=== PATIENT | male | born 1955 | race Caucasian/White ===

== ENCOUNTER 2016-05-25 12:05 | Inpatient (IN) | payer BC ==
[~2016-05-25] VITALS: Ht 182.9 cm; Wt 142.5 kg
--- NOTE | ~2016-05-25 | HP ---
PATIENT'S NAME: COLLIN NICHOLS [facility] AGE: 60 Y [address] ROOM: [place] [address] LOCATION: [facility] ADMIT DATE: 05/25/2016 History & Physical DISCHARGE DATE: FAMILY PHYSICIAN: PHYSICIAN, UNKNOWN ATTENDING PHYSICIAN: Karen Alexander DATE OF SERVICE: 05/25/2016 The patient referred from [facility]. REASON FOR REFERRAL: Subarachnoid hemorrhage. PATIENT IDENTIFICATION: Collin Nichols is a 60-year-old right-handed male. PRESENTING COMPLAINT: Headache. HISTORY OF PRESENT ILLNESS: The patient developed a sudden severe headache about 9:00 a.m. this morning. He had some vomiting after the headache and was incontinent of bowel and bladder. When the came into the house and found that the patient was half on the couch and half on the floor with his pants partly pulled down. He was not responding very well. The patient's son came by and they were able to get the patient to stand up and changing to sweat pants. The patient stood up by himself but was unsteady. He went outside and had a cigarette. The patient was then persuaded to go to the hospital and he was taken to [facility]. He complained of headache still. A head CT scan was performed and it showed aneurysm or subarachnoid hemorrhage. The patient was transferred here for further treatment. While here, the patient had a CT angiogram which demonstrated two aneurysm see below. PAST MEDICAL HISTORY: The patient has a history of elevated blood pressure. SOCIAL HISTORY: The patient is . He smokes cigarettes. FAMILY HISTORY: There is no family history relevant to present problems. REVIEW OF SYSTEMS: PATIENT'S NAME: COLLIN NICHOLS [facility] AGE: 60 Y [address] ROOM: [place] [address] LOCATION: [facility] ADMIT DATE: 05/25/2016 History & Physical DISCHARGE DATE: FAMILY PHYSICIAN: PHYSICIAN, UNKNOWN ATTENDING PHYSICIAN: Karen Alexander A 10-point review of systems was carried out. The only abnormal findings are elevated blood pressure, headache, and vomiting. PHYSICAL EXAMINATION: GENERAL: The patient is a large-framed gentleman who was alert and cooperative through the examination. VITAL SIGNS: Blood pressure 138/76, pulse rate 94. NEUROLOGIC: Speech is clear. Cranial nerves, no deficits seen. Motor examination, the patient has normal strength in all the major muscle groups of his upper and lower extremities bilaterally. Gait not tested. CARDIOVASCULAR: Heart sounds are present. RESPIRATORY: The patient is not short of breath at bedside. EXTREMITIES: No cyanosis or clubbing. SKIN: No skin rashes or skin masses. REVIEW OF IMAGING STUDIES: The patient has had a head CT scan done. The head CT scan shows diffuse subarachnoid hemorrhage with a vague shadow, possibly an aneurysm in the anterior communicating area. The patient has also had a CT angiogram done. 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 MEDICAL DECISION MAKING: I discussed the situation with the patient and family members. I gave them the options of aneurysm coiling versus aneurysm clipping. I reviewed the benefits and risks of either procedure. The patient's family wished to be seen at the [facility] where both options are available in order to help them to make a final decision. The patient is therefore being transferred to [facility]. I have discussed with Dr. Nikko Moscoso, neurosurgeon, and he has kindly accepted the patient for transfer. We will send the patient's by helicopter. MD JUAN MIGUEL MCPHERSON/stanl /[id number] D: [id number] T: [id number] HISTORY & PHYSICAL
--- NOTE | 2016-05-25 19:12 | NUR ---
Patient admitted at 1250 from [place]. Patient down to CT at 1325. Back to room at 1335. Patient had two aneurysms seen on CT, one of which had burst and caused a subarachnoid bleed. Patient has history of HTN, lumpectomy of R) chest which was benign, and smokes 1 pack per day of cigarettes. Patient was alert and oriented x3 but slightly drowsy. Reports headache at 6/10 that was of sudden onset. Patient reports that this morning at 0900 he had a thunderclap headache. He went inside and took 2 excedrin and went back out to the garage. The states she came inside a little bit later and found him vomitting in the bathroom, he had had an incontinent void at this time that he was not aware of. He then had an incontinent bowel movement about 30 minutes later. He also vomitted again at this time. About 15 minutes after this, the states that she found him half on the floor and half on the couch moaning. She could not get a response from him. She then called for help. This patient was transferred to [facility] by helicopter at 1532 for higher level of care.
== END 2016-05-25 15:32 | disposition hospice, home (50) | DRG 66 ==
LOC: GNTU 12:44
PROVIDERS: ADMIT Neurological Surgery
DX: I60.9 Nontraumatic subarachnoid hemorrhage, unspecified (principal)
CPT/HCPCS: J2405; Q9967